=== PATIENT | female | born 1980 | race Caucasian/White ===

== ENCOUNTER 2023-03-06 17:36 | Emergency (ER) | payer SELFPAY ==
[2023-03-06 17:49] VITALS: BP 122/80; PULSE 77; RESP 16; TEMP 36.6; O2SAT 100
[2023-03-06] MEDS: methylPREDNISolone SOD SUCC 125 MG VIAL IM (18:12)
--- NOTE | 2023-03-06 18:23 | ED.GENADULT ---
HPI - General Adult General Chief complaint: Skin/Abscess/Foreign Body Stated complaint: Rash Source: patient Mode of arrival: ambulatory Limitations: no limitations History of Present Illness HPI narrative: Patient presents for evaluation of allergic reaction to poison sumac. She was working outdoors 2 days ago and noted an erythematous pruritic rash to her extremities and torso yesterday. She has had allergic response to poison sumac in the past. She denies any difficulty breathing or swallowing. She tried applying calamine lotion but it seemed to make symptoms worse in the past. She has been applying benadryl cream during this episode and has some modest improvement in her symptoms. Related Data Allergies Allergy/AdvReac Type Severity Reaction Status Date / Time No Known Allergies Allergy Verified 03/06/23 18:00 Review of Systems Review of Systems: CONSTITUTIONAL: Denies fever, chills, or sweats. EYES: Denies visual changes, redness, or discharge. ENT: Denies rhinorrhea, congestion, sore throat, or otalgia. CARDIOVASCULAR: Denies chest pain, palpitations, or edema. RESPIRATORY: Denies cough or dyspnea. GASTROINTESTINAL: Denies abdominal pain, nausea, vomiting, or diarrhea. GENITOURINARY: Denies dysuria or hematuria. SKIN: Reports pruritic rash to torso and extremities x 4. MUSCULOSKELETAL: Denies back pain, joint pain, or myalgia. NEUROLOGIC: Denies headache, numbness, dizziness, or weakness. PSYCHIATRIC: Denies anxiety or depression. [facility] Past Medical History Medical History (Updated 03/06/23 @ 18:26 by Martell Estrella, NICOLE, ) No pertinent past medical history Surgical History Surgical History No pertinent past surgical history Family History Family History Mother Family history non-contributory Social History Social History Smoking status: Never smoker Substance use: never Living arrangements: with family Gender identity (if verbalized by the patient): Female Sexual Orientation (if Verbalized by the Patient): Straight or Heterosexual Spiritual care concerns: No Exam Narrative: GENERAL: Well-appearing, well-nourished, and in no acute distress. HEAD: Normocephalic, atraumatic. EYES: PERRLA and EOMI. ENT: Nares clear, no rhinorrhea or epistaxis. Mucous membranes moist. Oropharynx without tonsillar hypertrophy exudate or other lesions. Bilateral TMs pearly caldwell nonbulging NECK: Supple. No adenopathy or masses. No carotid bruits or JVD CHEST: Clear to auscultation. No respiratory distress. No wheezes rales or rhonchi HEART: Regular rate and rhythm. No murmur heard. Normal peripheral pulses. ABDOMEN: Soft, nontender, nondistended, normal active bowel sounds. EXTREMITIES: Normal range of motion. No edema. SKIN: There is an erythematous rash and patchy distribution to torso and extremities x4. NEURO: No focal deficits. Alert and oriented x3. PSYCH: Normal mood and affect. Course Course Emergency Course: This is a 42-year-old female who presented for evaluation of reported rash to torso and extremities x4. This is a classic presentation of poison sumac dermatitis. She was given Solu-Medrol here. Will discharge with prednisone taper to ensure no recurrence which is often seen in burst therapy. Follow up with primary provider. Oral Benadryl should help. Calamine lotion may help with swell. Go to the emergency department for worsening symptoms. Patient in agreement with plan of care Level of Care: Express Care Visit Vital Signs Vital signs: Vital Signs Temperature 36.6 C 03/06/23 17:49 Pulse Rate 77 03/06/23 17:49 Respiratory Rate 16 03/06/23 17:49 Blood Pressure 122/80 03/06/23 17:49 Pulse Oximetry 100 03/06/23 17:49 Oxygen Delivery Room Air 03/06/23 17:49 Temper
== END 2023-03-06 18:36 | disposition home or self-care (01) ==
PROVIDERS: Emergency Provider Nurse Practitioner
DX: L23.7 Allergic contact dermatitis due to plants, except food (principal)
CPT/HCPCS: 96372; 99213; G0463; J2930

== ENCOUNTER 2023-03-15 14:45 | Emergency (ER) | payer SELFPAY ==
[2023-03-15 14:49] VITALS: BP 117/95; PULSE 116; RESP 14; TEMP 36.5; O2SAT 99
--- NOTE | 2023-03-15 15:25 | ED.SKABFB ---
HPI - Skin/Abscess/Foreign Bdy General Chief complaint: Skin/Abscess/Foreign Body Stated complaint: Rash Source: patient, family and RN notes reviewed History of Present Illness HPI narrative: 42yo F presents to urgent care with complaints of an itchy rash to her bilateral legs. Pt states she was taking prednisone since last week when she was seen here for poison sumac. Pt states she was in the middle of the prednisone Rx when she stopped it on Sunday due to an itchy rash and she was having palpitations. Pt has attempted taking oatmeal baths, apple cider vinegar baths, applying topical Benadryl, and taking oral Benadryl without relief. States her palpitations have stopped since she stopped the prednisone. Denies any fevers, chills, SOB, or vomiting. Related Data Allergies Allergy/AdvReac Type Severity Reaction Status Date / Time prednisone Allergy Rash Verified 03/15/23 15:03 Review of Systems Review of Systems: Pertinent positives and pertinent negatives per HPI. FOR[facility]LY [facility], [facility] Past Medical History Medical History (Updated 03/15/23 @ 15:27 by Hailey Gallegos, JUAN) No pertinent past medical history Surgical History Surgical History No pertinent past surgical history Family History Family History Mother Family history non-contributory Social History Social History Smoking status: Never smoker Substance use: never Living arrangements: with family Gender identity (if verbalized by the patient): Female Sexual Orientation (if Verbalized by the Patient): Straight or Heterosexual Spiritual care concerns: No Comments At the time of my signature, I reviewed and agree with the nursing past medical, surgical, social, and family history. There is no relevant family history pertinent to the patient complaint. Exam Narrative: GENERAL: This is a well-nourished, well-developed patient, in no apparent distress. HEAD: normocephalic, atraumatic. EYES: Sclera clear/white. Vision is grossly intact. EARS: External ears normal, auditory canals clear and without drainage. Hearing grossly intact. NOSE: External nose normal with no obvious nasal discharge, nares without redness, no rhinorrhea. THROAT: Mucous membranes moist, posterior pharynx clear. NECK: Neck supple, non-tender without lymphadenopathy, masses or thyromegaly. CARDIOVASCULAR: Regular rate and rhythm without murmurs, gallops, or rubs. RESPIRATORY: Clear to auscultation. Breath sounds equal bilaterally. No wheezes, rales, or rhonchi. GASTROINTESTINAL: Abdomen soft, non-tender, nondistended. Bowel sounds are active. No hepato-splenomegaly, or palpable masses. No guarding. SKIN: erythema to bilateral thighs with small patch of tiny clear fluid-filled blisters. Mild erythema to trunk. NEURO: awake, alert, and oriented to person, place and time. There were no obvious focal neurologic abnormalities. EXTREMITIES: No clubbing, cyanosis, or edema. No joint tenderness, effusion, or edema noted. BACK: Nontender without deformity or crepitus. No flank tenderness. Course Course Level of Care: Express Care Visit Vital Signs Vital signs: Vital Signs Temperature 97.7 F 03/15/23 14:49 Pulse Rate 116 H 03/15/23 14:49 Respiratory Rate 14 03/15/23 14:49 Blood Pressure 117/95 H 03/15/23 14:49 Pulse Oximetry 99 03/15/23 14:49 Oxygen Delivery Room Air 03/15/23 14:49 Temperature 97.7 F 03/15/23 14:49 Pulse Rate 116 H 03/15/23 14:49 Respiratory Rate 14 03/15/23 14:49 Blood Pressure 117/95 H 03/15/23 14:49 Pulse Oximetry 99 03/15/23 14:49 Oxygen Delivery Room Air 03/15/23 14:49 reviewed MDM - Skin/Abscess/Foreign Bdy MDM Narrative Medical decision making narrative: Take either the hydroxyzine OR Benadryl as directed, but not both. May continue the o
== END 2023-03-15 15:31 | disposition home or self-care (01) ==
PROVIDERS: Emergency Provider Nurse Practitioner Family
DX: T78.40XA Allergy, unspecified, initial encounter (principal)
CPT/HCPCS: 99213; G0463